=== PATIENT | male | born 1965 | race Two or more races ===

== ENCOUNTER 2024-09-16 08:43 | Emergency (ER) | payer MEDICAID ==
[~2024-09-16] VITALS: Ht 167.6 cm; Wt 99.8 kg
[2024-09-16 09:45] VITALS: BP 160/83; PULSE 85; RESP 18; TEMP 98; O2SAT 98
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
[2024-09-16] MEDS: KETOROLAC TROMETH 60MG/2ML VIAL IM ONE (10:21)
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
[2024-09-16] MEDS ORDERED: CYCL-839 PO (10:53)
[2024-09-16] MEDS ORDERED: IBUP-1456 PO (10:53)
[2024-09-16] MEDS ORDERED: LIDO5DIS21 TOP (10:53)
== END 2024-09-16 11:04 | disposition home or self-care (01) ==
LOC: ER 08:43
DX: M25.519 Pain in unspecified shoulder (principal); V43.92XA Unspecified car occupant injured in collision with other type car in traffic accident, initial encounter; Y93.89 Activity, other specified; Y92.89 Other specified places as the place of occurrence of the external cause; Y99.8 Other external cause status
CPT/HCPCS: 72040; 72110; 96372; 99284; J1885